=== PATIENT | male | born 1930 | race Caucasian/White ===

== ENCOUNTER → 2016-09-30 | Outpatient (CLI) | payer OTHER | LOC: BHFA 14:45 | PROVIDERS: ATTEND Internal Medicine Cardiovascular Disease | DX: R00.2 Palpitations (principal) ==

== ENCOUNTER → 2016-10-28 | Outpatient (CLI) | payer OTHER | LOC: FIMAGING 13:11 | PROVIDERS: ATTEND Orthopaedic Surgery Hand Surgery | DX: S66.112A Strain of flexor muscle, fascia and tendon of right middle finger at wrist and hand level, initial encounter (principal); M18.52 Other unilateral secondary osteoarthritis of first carpometacarpal joint, left hand ==

== ENCOUNTER 2018-06-03 20:22 | Emergency (ER) | payer OTHER ==
--- NOTE | 2018-06-03 21:42 | EDPHY ---
H & P Stated Complaint: ABNORMAL LAB VAULES SENT PCP Time Seen by Provider: 06/03/18 21:29 HPI/ROS: CHIEF COMPLAINT: "My doctor told me to come in" HISTORY OF PRESENT ILLNESS: 87-year-old male history of recurrent pulmonary emboli, on chronic, daily Xarelto, was seen by his PCP today for evaluation of left leg swelling, atraumatic. States that blood work was drawn and few hours later he received a phone call time that he needed to go to the ER for imaging. Further specifics unknown by patient. He denies, either currently or recently : chest pain, dyspnea, back pain, syncope, near syncope, lower extremity discoloration or trauma. PRIMARY CARE PROVIDER: Dr. Libby Ramos REVIEW OF SYSTEMS: 10 systems reviewed and negative with the exception of the elements mentioned in the history of present illness PAST MEDICAL & SURGICAL HISTORY: Recurrent pulmonary emboli. Chronic Xarelto anticoagulation SOCIAL HISTORY: Nonsmoker PHYSICAL EXAM (Prior to examination, patient consented to physical exam, hands were washed and my usual and customary physical exam procedures followed) 1) GENERAL: Well-developed, well-nourished, alert and oriented. Appears to be in no acute distress. Smiling, appears well, speaking full sentences. No signs of respiratory distress. 2) HEAD: Normocephalic, atraumatic 3) HEENT: Pupils equal, round, reactive to light bilaterally. Sclera anicteric. Nasopharynx, oropharynx, clear, no lesions. Moist Mucous membranes. 4) NECK: Full range of motion, no meningeal signs. 5) LUNGS: Clear auscultation bilaterally, no wheezes, no rhonchi, no retractions. 6) HEART: Regular rate and rhythm, no murmur, no heave, no gallop. 7) ABDOMEN: No guarding, no rebound, no focal tenderness, negative McBurney's, negative Julian's, negative Rovsing's, negative peritoneal sign, 8) MUSCULOSKELETAL: Asymmetrical edema left lower extremity. DP PT pulses present and brisk. Normal, warm color and temperature. Brisk capillary refill. Soft compartments .Moving all extremities, no focal areas of tenderness , no obvious trauma. No peripheral edema or discoloration. 9) BACK: No CVA tenderness, no midline vertebral tenderness, no fluctuance, no step-off, no obvious trauma, no visual or palpable abnormality. 10) SKIN: No rash, no petechiae. 11) Psychiatric: Patient is oriented X 3, there is no agitation. DIFFERENTIAL DIAGNOSIS: In no particular order including but not limited to DVT , PE, compartment syndrome - Personal History Current Tetanus/Diphtheria Vaccine: Unsure Current Tetanus Diphtheria and Acellular Pertussis (TDAP): Unsure - Medical/Surgical History Hx Asthma: No Hx Chronic Respiratory Disease: No Hx Diabetes: No Hx Cardiac Disease: No Hx Renal Disease: No Hx Cirrhosis: No Hx Alcoholism: No Hx HIV/AIDS: No Hx Splenectomy or Spleen Trauma: No Other PMH: COLON CA 2006. PE. RA. OSTEOPEROSIS - Social History Smoking Status: Former smoker Constitutional: Initial Vital Signs Temperature (C) 36.8 C 06/03/18 20:27 Heart Rate 106 H 06/03/18 20:27 Respiratory Rate 18 06/03/18 20:27 Blood Pressure 154/73 H 06/03/18 20:27 O2 Sat (%) 96 06/03/18 20:27 O2 Delivery Mode Room Air Allergies/Adverse Reactions: oxaliplatin Allergy (Verified 06/03/18 20:32) Other-Enter Comments Penicillins Allergy (Verified 06/03/18 20:32) Salicylates * [Salicylates] Allergy (Verified 06/03/18 20:32) Rash Salicylates * Allergy (Unknown, Uncoded 06/03/18 20:32) Rash Home Medications: Medication Instructions Recorded Hytrin 11/14/10 PROSCAR 11/14/10 Xarelto 10mg (*) 06/03/18 Medical Decision Making - Diagnostics Imaging Results: Imaging Impressions Extremity Venous Study 06/03/18 21:40 Impression: 1. There is no sonographic evidence of deep or superficial vein thrombosis in the left lower extremity. 2. 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 Findings were discussed with Katerina Leo PA-C at 22:40, on 06/03/2018. Images reviewed myself ED Course/Re-evaluation: 10:00 p.m.: D-dimer 0.69 ordered earlier today. Patient is already on Xarelto anticoagulation denies dyspnea, denies chest pain. He is concerned about left lower extremity edema. He has brisk pulses and capillary refill with normal coloration no evidence of ischemic disease. Had a lengthy discussion with the patient regarding the indications risks benefits of imaging as he is already on Xarelto. He would like an ultrasound of left lower extremity which has been ordered. Care of patient under supervision of secondary supervising physician Dr Lambert with whom I discussed case. 10:41 p.m.: Ultrasound interpreted by Dr. Wilbur Gonsalez is negative for DVT , positive for Castellanos cyst. 10:42 p.m.: Re-evaluation. Patient remains neurovascularly intact. No evidence of ischemic disease. I think the patient can be discharged. Recommend orthopedic follow-up with Dr. Geremias Solano. Patient has been informed that acute pulmonary embolus is not ruled out. At this time I do not think that CT imaging of the chest is indicated given his history of recurrent pulmonary embolus, history of chronic Xarelto anticoagulation with medication compliance, lack of symptoms such as chest pain, dyspnea, syncope, near syncope. He feels comfortable being discharged - Data Points Laboratory Results: 06/03/18 21:38 POC Hgb 12.2 gm/dL L gm/dL (13.7-17.5) POC Hct 36 % L % (40-51) POC Sodium 134 mEq/L L mEq/L (135-145) POC Potassium 3.7 mEq/L mEq/L (3.3-5.0) POC Chloride 97 mEq/L mEq/L (97-110) POC BUN 17 mg/dL mg/dL (7-23) POC Creatinine 1.1 mg/dL mg/dL (0.7-1.3) POC Glucose 124 mg/dL H mg/dL (70-100) Point of Care Test Results: Chemistry 06/03/18 21:38 POC Sodium 134 mEq/L L mEq/L (135-145) POC Potassium 3.7 mEq/L mEq/L (3.3-5.0) POC Chloride 97 mEq/L mEq/L (97-110) POC BUN 17 mg/dL mg/dL (7-23) POC Creatinine 1.1 mg/dL mg/dL (0.7-1.3) POC Glucose 124 mg/dL H mg/dL (70-100) ISTAT H&H 06/03/18 21:38 POC Hgb 12.2 gm/dL L gm/dL (13.7-17.5) POC Hct 36 % L % (40-51) Departure - Departure Disposition: Home, Routine, Self-Care Clinical Impression: Castellanos's cyst Qualifiers: Laterality: left Qualified Code(s): M71.22 - Synovial cyst of popliteal space [ Castellanos], left knee Condition: Good Instructions: Bakers Cyst (ED) Additional Instructions: Return to the ER immediately if you experience discoloration, have worsening pain, numbness, tingling, or any other symptoms that concern you. If you received x-rays in the emergency department today, be advised, that ligamentous , tendon, muscular, and other non-bony injury cannot be fully ruled out. Try to keep your affected extremity elevated above the level of your chest, and keep cold packs on the affected area, for the next 48 hours. Referrals: Geremias Solano MD [Medical Doctor] - 2-3 days, call for appt.
[2018-06-03 23:08] VITALS: BP 142/87
== END 2018-06-03 23:05 | disposition home or self-care (01) ==
DX: M79.89 Other specified soft tissue disorders (principal); M71.22 Synovial cyst of popliteal space [Baker], left knee; Z86.711 Personal history of pulmonary embolism; Z79.01 Long term (current) use of anticoagulants; Z87.891 Personal history of nicotine dependence
CPT/HCPCS: 82435-PO; 82565-PO; 82947-PO; 84132-PO; 84295-PO; 84520-PO; 85014-PO

== ENCOUNTER → 2018-06-03 | Outpatient (CLI) | payer OTHER | LOC: FIMAGING 14:24 | PROVIDERS: ATTEND Family Medicine | DX: R00.0 Tachycardia, unspecified (principal); M21.162 Varus deformity, not elsewhere classified, left knee; M25.473 Effusion, unspecified ankle; Q66.7 Congenital pes cavus; R06.02 Shortness of breath; R60.9 Edema, unspecified; R73.9 Hyperglycemia, unspecified ==

== ENCOUNTER → 2018-06-24 | Outpatient (CLI) | payer OTHER | LOC: BHFA 15:30 | PROVIDERS: ATTEND Internal Medicine Cardiovascular Disease | DX: R06.00 Dyspnea, unspecified (principal) ==

== ENCOUNTER → 2018-10-12 | Outpatient (CLI) | payer OTHER | LOC: CIMAGING 12:51 | PROVIDERS: ATTEND Family Medicine | DX: S92.341A Displaced fracture of fourth metatarsal bone, right foot, initial encounter for closed fracture (principal) | CPT/HCPCS: 73630-PO ==

== ENCOUNTER → 2019-01-06 | Outpatient (CLI) | payer OTHER | LOC: CIMAGING 11:36 ==